=== PATIENT | female | born 1955 | race Caucasian/White ===

== ENCOUNTER 2017-08-14 10:45 | Outpatient (CLI) | payer SELFPAY ==
--- NOTE | 2017-08-16 10:46 | Mammography Report ---
Procedure Date: 08/14/2017 Accession Number: [id number] / [id number] Procedure: MCKAYLA - Screening Mammo Dig Bilat CPT Code: FULL RESULT: EXAM: Screening Mammo Dig Bilat DATE: 08/14/2017 11:10 AM CLINICAL HISTORY: 62-year-old for screening TECHNIQUE: Bilateral CC and MLO views were obtained. COMPARISON: 08/26/2015, 08/26/2014, 08/19/2013, 08/06/2012, 06/05/2011, 05/27/2010, 05/21/2009 FINDINGS: The breasts demonstrate scattered fibroglandular densities bilaterally. Punctate, typically benign calcifications are present. No suspicious masses, clustered microcalcifications, or regions of architectural distortion are identified. IMPRESSION: Benign findings RECOMMENDATION: Routine annual screening unless otherwise clinically indicated. BIRADS CATEGORY 2: Benign findings STANDARD QUALIFYING STATEMENTS: 1. This examination was reviewed with the aid of Computer-Aided Detection (CAD). 2. A negative or benign imaging report should not delay biopsy if clinically suspicious findings are present. Consider surgical consultation if warrented. More than 5% of cancers are not identified by imaging. 3. Dense breasts may obscure an underlying neoplasm.
== END 2017-08-14 10:46 | disposition home or self-care (01) ==
LOC: DI 10:45
PROVIDERS: ATTEND Specialist
DX: Z12.31 Encounter for screening mammogram for malignant neoplasm of breast (principal)
CPT/HCPCS: 77067

== ENCOUNTER 2017-08-28 12:25 | Day surgery (SDC) | payer SELFPAY ==
[2017-08-28] MEDS ORDERED: LACTATED RINGERS 1,000 ML IV ONE (12:40)
[2017-08-28] MEDS ORDERED: fentaNYL 250 MCG/5 ML VIAL IVP ONE (13:35)
[2017-08-28] MEDS ORDERED: MIDAZOLAM 2 MG/2 ML VIAL IVP ONE (13:35)
[2017-08-28 14:47] VITALS: BP 102/62
== END 2017-08-28 12:26 | disposition home or self-care (01) ==
LOC: SDS 12:25
PROVIDERS: ATTEND Surgery
PROC: 0DBK8ZZ Excision of Ascending Colon, Via Natural or Artificial Opening Endoscopic (ICD-10-PCS; principal; 2017-08-28 13:30)
DX: Z12.11 Encounter for screening for malignant neoplasm of colon (principal); D12.2 Benign neoplasm of ascending colon; K90.0 Celiac disease
CPT/HCPCS: 45380; J3010; J7120

== ENCOUNTER 2019-02-21 15:57 | Outpatient (CLI) | payer SELFPAY ==
--- NOTE | 2019-02-26 11:17 | Mammography Report ---
Reason: ROUTINE SCREENING Procedure Date: 02/21/2019 Accession Number: [id number] / [id number] Procedure: MCKAYLA - Screening Mammo Dig Bilat CPT Code: Final Report FULL RESULT: EXAM: Screening Mammo Dig Bilat DATE: 02/21/2019 4:26 PM CLINICAL HISTORY: The patient is an asymptomatic 63-year-old female. Second degree family history of breast cancer. TECHNIQUE: (B) - Bilateral CC, laterally exaggerated CC, MLO views were obtained. COMPARISON: 08/14/2017, 08/21/2015, 08/26/2014, 08/19/2013, 08/06/2012 06/05/2011 PARENCHYMAL PATTERN: (A) - The breasts demonstrate scattered fibroglandular densities bilaterally. FINDINGS: The pattern of asymmetry is stable given positional variation and interval involution. There are no suspicious masses, calcifications, or areas of distortion. IMPRESSION: Negative examination. BI-RADS category 1. RECOMMENDATION: (ANNUAL) - Recommend routine annual screening mammography. BI-RADS CATEGORY: (1) - Negative. STANDARD QUALIFYING STATEMENTS: 1. This examination was not reviewed with the aid of Computer-Aided Detection (CAD). 2. A negative or benign imaging report should not preclude biopsy if clinically suspicious findings are present. 3. Dense breasts may obscure an underlying neoplasm. 4. This examination was reviewed the aid of 3D breast imaging (tomosynthesis).
== END 2019-02-21 15:58 | disposition home or self-care (01) ==
LOC: DI 15:57
DX: Z12.31 Encounter for screening mammogram for malignant neoplasm of breast (principal); Z80.3 Family history of malignant neoplasm of breast
CPT/HCPCS: 77067

== ENCOUNTER 2020-03-09 10:29 | Outpatient (CLI) | payer SELFPAY ==
--- NOTE | 2020-03-10 10:11 | Mammography Report ---
BILATERAL DIGITAL SCREENING MAMMOGRAM 3D/2D: 03/09/2020 CLINICAL: Routine screening. Comparison is made to exams dated: 02/21/2019 mammogram, 08/14/2017 mammogram, and 08/26/2015 mammogram - [facility]. The tissue of both breasts is heterogeneously dense. This may lower t he sensitivity of mammography. No significant masses, calcifications, or other findings are seen in either breast. There has been no significant interval change. IMPRESSION: NEGATIVE There is no mammographic evidence of malignancy. A 1 year screening mammogram is recommended. This exam was interpreted at Station ID: [id number]. NOTE: For mammograms, a report in lay terms will be sent to the patient. Approximately 15% of breast malignancies will not be visualized mammographically. In the management of a palpable breast mass, a negative mammogram must not discourage biopsy of a clinically suspicious lesion. Electronically Signed By: Shaka Giron M.D. ar/tejal:03/09/2020 11:57:04 ACR BI-RADS Category 1: Negative 3341F PARENCHYMAL PATTERN: (D) - The breast(s) demonstrate(s) heterogeneously dense fibroglandular amy song. BI-RADS CATEGORY: (1) - 1 RECOMMENDATION: (ANNUAL) - Recommend routine annual screening mammography. [id number] 1 year screening LATERALITY: (B)
== END 2020-03-09 10:30 | disposition home or self-care (01) ==
LOC: DI.N 10:29
PROVIDERS: ATTEND Specialist
DX: Z12.31 Encounter for screening mammogram for malignant neoplasm of breast (principal)

== ENCOUNTER 2020-03-12 09:52 | Outpatient (CLI) | payer SELFPAY ==
--- NOTE | 2020-03-12 14:39 | DEXA Report ---
PROCEDURE: Dexa Spine and/or Hip INDICATIONS: SCREENING FOR OSTEOPOROSIS TECHNIQUE: Dual energy x-ray absorptiometry (DXA) was performed on a [employer] System. Regions measur ed are the AP Spine, femoral neck, and if needed forearm. COMPARISON: None. FINDINGS: Lumbar Spine: Bone Mineral Density 0.997 g/cm/cm,T score -1.5, mild osteopenia Left Hip: Bone Mineral Density 0.727 g/cm/cm,T score -2.2, severe osteopenia Left Femoral Neck: Bone Mineral Density 0.766 g/cm/cm, T score -2.0, moderate to severe osteopenia (T score greater or equal to -1.0: NORMAL) (T score from -1.1 to -2.4: OSTEOPENIA) (T score less than or equal to -2.5 to: OSTEOPOROSIS) Impression: Osteopenia most severe in the left hip as above. Patients with diagnosis of osteoporosis or osteopenia should have regular bone mineral density assess ment. For those eligible for Medicare, routine testing is allowed once every 2 years. Testing frequ ency can be increased for patients who have rapidly progressing disease or for those who are receivin g medical therapy to restore bone mass. Reviewed by: Shira Turcois MD on 03/12/2020 2:38 PM PST Approved by: Shira Turcios MD on 03/12/2020 2:38 PM PST Station ID: [id number]
== END 2020-03-12 09:53 | disposition home or self-care (01) ==
LOC: DI 09:52
PROVIDERS: ATTEND Specialist
DX: Z13.820 Encounter for screening for osteoporosis (principal); M85.89 Other specified disorders of bone density and structure, multiple sites

== ENCOUNTER 2021-06-20 11:46 | Outpatient (CLI) | payer SELFPAY | END 2021-06-20 23:59 | disposition home or self-care (01) | LOC: LAB.N 11:46 | PROVIDERS: ATTEND Physician Assistant Medical | DX: J34.89 Other specified disorders of nose and nasal sinuses (principal); Z20.822 Contact with and (suspected) exposure to COVID-19 ==

== ENCOUNTER 2021-12-08 11:12 | Outpatient (CLI) | payer SELFPAY ==
--- NOTE | 2021-12-09 09:45 | Mammography Report ---
BILATERAL DIGITAL SCREENING MAMMOGRAM 3D/2D: 12/08/2021 CLINICAL: Routine screening. Comparison is made to exams dated: 03/09/2020 mammogram, 02/21/2019 mammogram, 08/14/2017 mammogram, 08/25 mammogram, 08/26/2014 mammogram, and 08/19/2013 mammogram - [facility]. There are scattered areas of fibroglandular density in both breasts (category b / 25%-50% glandular t issue). No significant masses, calcifications, or other findings are seen in either breast. There has been no significant interval change. IMPRESSION: NEGATIVE There is no mammographic evidence of malignancy. A 1 year screening mammogram is recommended. Based on the Tyrer Cuzick model (a risk assessment model) the patients lifetime risk is 8.3% and her 10 year risk is 3.8%. According to the ACR, ACS, and NCCN guidelines, an annual breast MRI exam leonardo g with mammogram is recommended if the patients lifetime risk is 20% or greater. This exam was interpreted at Station ID: [id number]. NOTE: For mammograms, a report in lay terms will be sent to the patient. Approximately 15% of breast malignancies will not be visualized mammographically. In the management of a palpable breast mass, a negative mammogram must not discourage biopsy of a clinically suspicious lesion. Electronically Signed By: Margo richardson/tejal:12/08/2021 21:34:44 ACR BI-RADS Category 1: Negative 3341F PARENCHYMAL PATTERN: (A) - The breast(s) demonstrate(s) scattered fibroglandular densities. BI-RADS CATEGORY: (1) - 1 RECOMMENDATION: (ANNUAL) - Recommend routine annual screening mammography. [id number] 1 year screening LATERALITY: (B)
== END 2021-12-08 11:13 | disposition home or self-care (01) ==
LOC: DI.N 11:12
PROVIDERS: ATTEND Nurse Practitioner
DX: Z12.31 Encounter for screening mammogram for malignant neoplasm of breast (principal)

== ENCOUNTER 2022-12-12 10:00 | Outpatient (CLI) | payer SELFPAY ==
--- NOTE | 2022-12-13 11:45 | Mammography Report ---
BILATERAL DIGITAL SCREENING MAMMOGRAM 3D/2D: 12/12/2022 CLINICAL: Routine screening. Comparison is made to exams dated: 12/08/2021 mammogram, 03/09/2020 mammogram, 02/21/2019 mammogram, mammogram, 08/26/2015 mammogram, and 08/26/2014 mammogram - [facility]. There are scattered areas of fibroglandular density in both breasts (category b / 25%-50% glandular t issue). There is a benign focal asymmetry in the right breast. No significant masses, calcifications, or other findings are seen in either breast. There has been no significant interval change. IMPRESSION: BENIGN There is no mammographic evidence of malignancy. A 1 year screening mammogram is recommended. Based on the Tyrer Cuzick model (a risk assessment model) the patients lifetime risk is 7.9% and her 10 year risk is 3.8%. According to the ACR, ACS, and NCCN guidelines, an annual breast MRI exam leonardo g with mammogram is recommended if the patients lifetime risk is 20% or greater. This exam was interpreted at Station ID: [id number]. NOTE: For mammograms, a report in lay terms will be sent to the patient. Approximately 15% of breast malignancies will not be visualized mammographically. In the management of a palpable breast mass, a negative mammogram must not discourage biopsy of a clinically suspicious lesion. Electronically Signed By: Suresh stern/tejal:12/12/2022 17:36:09 letter sent: No_Letter ACR BI-RADS Category 2: Benign Finding(s) 3342F PARENCHYMAL PATTERN: (A) - The breast(s) demonstrate(s) scattered fibroglandular densities. BI-RADS CATEGORY: (2) - 2 Mammogram [id number] 1 year screening LATERALITY: (B)
== END 2022-12-12 10:01 | disposition home or self-care (01) ==
LOC: DI.N 10:00
PROVIDERS: ATTEND Nurse Practitioner
DX: Z12.31 Encounter for screening mammogram for malignant neoplasm of breast (principal); R92.323 Mammographic fibroglandular density, bilateral breasts

== ENCOUNTER 2023-11-15 09:11 | Outpatient (CLI) | payer SELFPAY ==
[2023-11-15] MEDS ORDERED: DIATRIZOATE MEGLU/DIATRIZO SOD 30 ML BOTTLE PO ONE (09:32)
[2023-11-15] MEDS: DIATRIZOATE MEGLU/DIATRIZO SOD 30 ML BOTTLE PO ONE (10:31)
--- NOTE | 2023-11-16 09:53 | CT Report ---
PROCEDURE: Abdomen WO INDICATIONS: HEARTBURN, EPIGASTRIC HERNIA CONTRAST: Noncontrast study TECHNIQUE: After the administration of oral contrast, 5 mm thick sections acquired from the diaphragms to the il iac crests. 5 mm coronal and sagittal reformats were then performed. For radiation dose reduction, the following was used: automated exposure control, adjustment of mA and/or kV according to patient size. COMPARISON: None FINDINGS: Image quality: Diagnostic Lower chest: Mucous plugging and atelectasis in the middle lobe and lingula. Atelectasis also seen in the left lower lung. A possible small sliding hiatal hernia is present on this nondynamic study. Possible coronary calcifi cations partially seen Liver: Hypoattenuating liver lesions are seen, possibly cysts or hemangiomas, overall indeterminate, most notably at the liver dome measuring 1.3 cm. (/). Solid organs otherwise not well evaluated without IV contrast Gallbladder and biliary system: Unremarkable, nondilated Pancreas: No ductal dilation Spleen: Nonenlarged Adrenals: No discrete nodules Kidneys: Possible parapelvic cysts. No obstructing calcified stone is seen No contour deforming solid mass Vessels and lymph nodes: No abdominal aortic aneurysm or pathologic lymph nodes by size criteria. Bowel and peritoneum: No small bowel obstruction. No pathologic ascites Body wall: Unremarkable Bones: No acute or suspicious osseous finding. IMPRESSION: There is a possible small sliding hiatal hernia. If further evaluation is needed, consider endoscopy or esophagram. No small bowel obstruction. There are numerous indeterminate liver lesions, which may represent cysts or hemangiomas. However con glove boarder liver MRI for confirmation, especially if the patient has any risk factors or history of malign ron. Other findings above. Reviewed by: Jaime Best MD on 11/16/2023 9:51 AM PDT Approved by: Jaime Best MD on 11/16/2023 9:51 AM PDT Station ID: [id number]
== END 2023-11-15 09:12 | disposition home or self-care (01) ==
LOC: DI 09:11
PROVIDERS: ATTEND Nurse Practitioner Family
DX: K76.9 Liver disease, unspecified (principal); R12 Heartburn
CPT/HCPCS: 74150; Q9963